=== PATIENT | male | born 1960 | race Caucasian/White ===

== ENCOUNTER 2017-11-03 18:32 | Inpatient (IN) | payer OTHER ==
[2017-11-03] MEDS ORDERED: ONDANSETRON 4 MG/2 ML VIAL IVP ONE (18:36)
[2017-11-03] MEDS ORDERED: NS 1,000 ML IV ONE ×2 (18:36→20:31)
--- NOTE | 2017-11-03 18:40 | CPEKG ---
Heart Rate: 129 RR Interval: 465 P-R Interval: 156 QRSD Interval: 80 QT Interval: 296 QTC Interval: 434 P [place]: 74 QRS [place]: 73 T Wave [place]: 247 EKG Severity - ABNORMAL ECG - EKG Impression: SINUS TACHYCARDIA EKG Impression: NONSPECIFIC T ABNORMALITIES, LATERAL LEADS Electronically Signed By: Nathan Chong 04-Nov-2017 21:52:54
--- NOTE | 2017-11-03 18:48 | EDPHY ---
HPI/HX/ROS/PE/MDM Narrative: CHIEF COMPLAINT: Abdominal pain, chest pain, dry heaves, diarrhea HPI: The patient is a 57 y/o male with a history of esophageal sphincter surgery complaining of abdominal pain, chest pain, dry heaves, and diarrhea, onset this morning. He has had chest pressure on exertion for a year and a half which was evaluated in January 2016 without etiology. This morning he began experiencing chest pain, abdominal pain, dry heaves, and diarrhea. His symptoms cycle from diarrhea to consuming liquids, such as Gatorade, to chest pain, to dry heaves, to abdominal pain and then repeat. He has had diarrhea every 15 minutes since 10:00 AM, almost 9 hours ago. He describes the abdominal pain as diffuse and dull. He has associated light sensitivity, chills, and possible fever. He denies any other associated symptoms. He had an appendectomy 40 years ago. REVIEW OF SYSTEMS: Aside from elements discussed in the HPI, a comprehensive 10-point review of systems was reviewed and is negative. PMH: Esophageal sphincter surgery, appendectomy, chronic chest pressure on exertion SOCIAL HISTORY: at bedside, , lives in [place] PHYSICAL EXAM: General:Patient is pale and diaphoretic. ENT:Eyes are normal to inspection. ENT inspection normal. Neck: Normal inspection. Full range of motion. Respiratory:Tachypnea. Breath sounds normal bilaterally. Cardiovascular: Tachycardic. Normal cap refill. Abdomen:The abdomen is nontender to palpation. There are no peritoneal signs. There are normal bowel sounds. Back: Normal to inspection. No tenderness to palpation. Skin: Normal color. No rash. Warm and dry. Extremities: Normal appearance. Full range of motion. Neuro: Oriented x3. Normal motor function. Normal sensory function. ED Course: EKG was ordered and interpreted by myself. Sinus tachycardia Please see [employer] system for official reading Study: X-ray of the chest and abdomen Indication: Abdominal pain, dry heaves, diarrhea Results: X-ray of the abdomen was obtained. The results of the study are: negative for acute processes The study was read by the radiologist, Dr. Luu. I viewed the images myself on the PACS system. Study: CT of the chest and abdomen Indication: abdominal pain, dry heaves, diarrhea Results: CT scan of the chest and abdomen was obtained. The results of the study are: negative for acute processes The study was read by the radiologist, Dr. Luu. I viewed the images myself on the PACS system. Patient was rushed into room 2 due to their diaphoretic appearance and dry heaving. I met him when he arrived. EKG was normal. Plan for X-ray and CT. 2030: I discussed admission for this patient with the hospitalist service. Dr. Ray agrees to admit. MDM: This patient presents with a variety of symptoms including numbness, chest pain , abdominal pain, vomiting and diarrhea. He remains tachycardic despite IVNS. I think he requires admission to the hospital for further hydration, observation and workup. I see no signs of CVA, ACS, PNA, bowel obstruction, aortic dissection. - Data Points Imaging Results: Imaging Impressions Abdomen X-Ray 11/03/17 18:43 Impression: No evidence for free intraperitoneal air. Chest X-Ray 11/03/17 18:44 IMPRESSION: No evidence for acute cardiopulmonary abnormality. Abdomen CT 11/03/17 19:26 Impression: 1. Subtle haziness centrally in the mesentery and a couple of subcentimeter lymph nodes suggesting subtle mesenteric inflammation. No evidence for mass or abnormal fluid collection. 2. Surgical clips at the GE junction from prior surgery. 3. Fatty infiltration of the liver. 4. Mild chronic anterior wedge compression deformity of T12 and L1. Results called and discussed with Nathan Chong MD, on 11/03/2017, 20:04. Chest/Thorax CTA 11/03/17 19:26 Impression: No evidence of thrombopulmonary embolic disease. Results called and discussed with Nathan Chong MD, on 11/03/2017, 19:56. Laboratory Results: Laboratory Results 11/03/17 18:40 11/03/17 18:40 11/03/17 11/03/17 11/03/17 18:40 18:40 18:40 WBC 15.05 10^3/uL H 10^3/uL (3.80-9.50) RBC 5.45 10^6/uL 10^6/uL (4.40-6.38) Hgb 17.4 g/dL g/dL (13.7-17.5) POC Hgb Hct 49.2 % % (40.0-51.0) POC Hct MCV 90.3 fL fL (81.5-99.8) MCH 31.9 pg pg (27.9-34.1) MCHC 35.4 g/dL g/dL (32.4-36.7) RDW 12.5 % % (11.5-15.2) Plt Count 299 10^3/uL 10^3/uL (150-400) MPV 10.6 fL fL (8.7-11.7) Neut % (Auto) 80.3 % H % (39.3-74.2) Lymph % (Auto) 14.6 % L % (15.0-45.0) [place] % (Auto) 4.4 % L % (4.5-13.0) Eos % (Auto) 0.1 % L % (0.6-7.6) Baso % (Auto) 0.3 % % (0.3-1.7) Nucleat RBC Rel Count 0.0 % % (0.0-0.2) Absolute Neuts (auto) 12.10 10^3/uL H 10^3/uL (1.70-6.50) Absolute Lymphs (auto) 2.19 10^3/uL 10^3/uL (1.00-3.00) Absolute Monos (auto) 0.66 10^3/uL 10^3/uL (0.30-0.80) Absolute Eos (auto) 0.01 10^3/uL L 10^3/uL (0.03-0.40) Absolute Basos (auto) 0.05 10^3/uL 10^3/uL (0.02-0.10) Absolute Nucleated RBC 0.00 10^3/uL 10^3/uL (0-0.01) Immature Gran % 0.3 % % (0.0-1.1) Immature Gran # 0.04 10^3/uL 10^3/uL (0.00-0.10) POC Sodium Sodium 144 mEq/L mEq/L (134-144) POC Potassium Potassium 3.9 mEq/L mEq/L (3.5-5.2) POC Chloride Chloride 107 mEq/L mEq/L (97-110) Carbon Dioxide 18 mEq/l L mEq/l (22-31) Anion Gap 19 mEq/L H mEq/L (8-16) POC BUN BUN 20 mg/dL mg/dL (7-23) Creatinine 1.2 mg/dL mg/dL (0.7-1.3) POC Creatinine Estimated GFR > 60 Glucose 128 mg/dL H mg/dL (70-100) POC Glucose Calcium 10.3 mg/dL mg/dL (8.5-10.4) Total Bilirubin 1.1 mg/dL mg/dL (0.1-1.4) Conjugated Bilirubin 0.3 mg/dL mg/dL (0.0-0.5) Unconjugated Bilirubin 0.8 mg/dL mg/dL (0.0-1.1) AST 37 IU/L IU/L (17-59) ALT 51 IU/L IU/L (21-72) Alkaline Phosphatase 87 IU/L IU/L (38-126) Troponin I < 0.012 ng/mL ng/mL (0.000-0.034) Total Protein 8.2 g/dL g/dL (6.3-8.2) Albumin 4.7 g/dL g/dL (3.5-5.0) Lipase Pending 11/03/17 18:35 WBC RBC Hgb POC Hgb 17.7 gm/dL H gm/dL (13.7-17.5) Hct POC Hct 52 % H % (40-51) MCV MCH MCHC RDW Plt Count MPV Neut % (Auto) Lymph % (Auto) [place] % (Auto) Eos % (Auto) Baso % (Auto) Nucleat RBC Rel Count Absolute Neuts (auto) Absolute Lymphs (auto) Absolute Monos (auto) Absolute Eos (auto) Absolute Basos (auto) Absolute Nucleated RBC Immature Gran % Immature Gran # POC Sodium 143 mEq/L mEq/L (134-144) Sodium POC Potassium 3.8 mEq/L mEq/L (3.3-5.0) Potassium POC Chloride 110 mEq/L mEq/L (97-110) Chloride Carbon Dioxide Anion Gap POC BUN 22 mg/dL mg/dL (7-23) BUN Creatinine POC Creatinine 1.2 mg/dL mg/dL (0.7-1.3) Estimated GFR Glucose POC Glucose 128 mg/dL H mg/dL (70-100) Calcium Total Bilirubin Conjugated Bilirubin Unconjugated Bilirubin AST ALT Alkaline Phosphatase Troponin I Total Protein Albumin Lipase Medications Given: Discontinued Medications Sodium Chloride (Ns) 1,000 mls @ 0 mls/hr IV EDNOW ONE; Wide Open PRN Reason: Protocol Stop: 11/03/17 18:37 Last Admin: 11/03/17 18:51 Dose: 1,000 mls Sodium Chloride (Ns) 1,000 mls @ 0 mls/hr IV EDNOW ONE; Wide Open PRN Reason: Protocol Stop: 11/03/17 20:32 Last Admin: 11/03/17 20:43 Dose: 1,000 mls Morphine Sulfate (Morphine) 4 mg IVP EDNOW ONE Stop: 11/03/17 18:51 Last Admin: 11/03/17 18:50 Dose: 4 mg Ondansetron HCl (Zofran) 4 mg IVP EDNOW ONE Stop: 11/03/17 18:37 Last Admin: 11/03/17 18:51 Dose: 4 mg Point of Care Test Results: 11/03/17 18:35 POC Sodium 143 POC Potassium 3.8 POC Chloride 110 POC BUN 22 POC Creatinine 1.2 POC Glucose 128 H General Time Seen by Provider: 11/03/17 18:35 Initial Vital Signs: Initial Vital Signs Temperature (C) 37 C 11/03/17 18:32 Heart Rate 146 H 11/03/17 18:32 Respiratory Rate 20 11/03/17 18:32 Blood Pressure 97/73 L 11/03/17 18:32 O2 Sat (%) 94 11/03/17 18:32 O2 Delivery Mode Room Air Allergies/Adverse Reactions: amoxicillin Allergy (Mild, Verified 11/03/17 18:39) Rash Home Medications: Medication Instructions Recorded NK [No Known Home Meds] 11/03/17 Departure - Departure Disposition: [facility] Inpatient Acute Clinical Impression: Tachycardia Chest pain Qualifiers: Chest pain type: unspecified Qualified Code(s): R07.9 - Chest pain, unspecified Abdominal pain Qualifiers: Abdominal location: generalized Qualified Code(s): R10.84 - Generalized abdominal pain Condition: Fair Report Scribed for: Nathan Chong Report Scribed by: Rachel Mendez Date of Report: 11/03/17 Time of Report: 18:48 Physician Review and Approval Statement: Portions of this note were transcribed by an ED scribe. I personally performed the history, physical exam, and medical decision making; and confirm the accuracy of the information in the transcribed note.
[2017-11-03 18:55] LABS: % IMMATURE GRANULYOCYTES 0.3 % (0.0-1.1); ABSOLUTE IMMATURE GRANULOCYTES 0.04 10^3/uL (0.00-0.10); ADD DIFF? NO; ADD MORPH? NO; ADD SCAN? NO; ATYPICAL LYMPHOCYTE FLAG 0 (0-99); FRAGMENT RBC FLAG 0 (0-99); HEMATOCRIT 49.2 % (40.0-51.0); HEMOGLOBIN 17.4 g/dL (13.7-17.5); LEFT SHIFT FLG 0 (0-99); LIPEMIA HEMOLYSIS FLAG 90 (0-99); MEAN CELL HEMOGLOBIN 31.9 pg (27.9-34.1); MEAN CELL HEMOGLOBIN CONCENTR. 35.4 g/dL (32.4-36.7); MEAN CELL VOLUME 90.3 fL (81.5-99.8); MEAN PLATELET VOLUME 10.6 fL (8.7-11.7); PLATELET CLUMPS FLAG 10 (0-99); PLATELET COUNT 299 10^3/uL (150-400); RED BLOOD CELL COUNT 5.45 10^6/uL (4.40-6.38); RED CELL DISTRIBUTION WIDTH 12.5 % (11.5-15.2)
[2017-11-03 19:07] LABS: ANION GAP 19 mEq/L (8-16); CALCIUM 10.3 mg/dL (8.5-10.4); CARBON DIOXIDE 18 mEq/l (22-31); CHLORIDE 107 mEq/L (97-110); CREATININE 1.2 mg/dL (0.7-1.3); GLOMERULAR FILTRATION RATE > 60; GLUCOSE 128 mg/dL (70-100); POTASSIUM 3.9 mEq/L (3.5-5.2); SODIUM 144 mEq/L (134-144)
[2017-11-03 19:19] LABS: TROPONIN I < 0.012 ng/mL (0.000-0.034)
[2017-11-03] MEDS ORDERED: IOPAMIDOL (ISOVUE 370) 100 ML BTL IV ONE (19:30)
[2017-11-03] MEDS ORDERED: ONDANSETRON 4 MG/2 ML VIAL IVP PRN (20:36)
[2017-11-03] MEDS ORDERED: PROMETHAZINE HCL 25 MG/ML INJ IVP PRN (20:36)
[2017-11-03] MEDS ORDERED: ONDANSETRON DISINTEGRATING 4 MG TAB PO PRN (20:36)
[2017-11-03] MEDS ORDERED: NS W/ 20 KCl/L 1,000 ML IV SCH (20:45)
[2017-11-03 20:49] LABS: ALBUMIN 4.7 g/dL (3.5-5.0); BILIRUBIN,TOTAL 1.1 mg/dL (0.1-1.4); BILIRUBIN-CONJUGATED 0.3 mg/dL (0.0-0.5); BILIRUBIN-UNCONJUGATED 0.8 mg/dL (0.0-1.1); TOTAL PROTEIN 8.2 g/dL (6.3-8.2)
--- NOTE | 2017-11-03 21:18 | PDGENHP ---
History and Physical - Chief Complaint abdominal pain, diarrhea, chest pain, dry heaves - History of Present Illness 57 yo male with no significant past medical history presents to ED appearing hypotensive and diaphoretic. His symptoms started this am, when he awoke feeling poorly. He had lower abdominal pain and developed watery diarrhea every 10 minutes, along with dry heaves, noting he is unable to vomit due to prior esophageal sphincter surgery. No BPBRP or hematemesis. He denies recent antibiotic use, recent travel ( in July), sick contacts, or suspicious food. Frequent diarrhea persisted throughout the morning. He has had little to no oral intake today. 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 He denies LOC, but felt his legs get weak and was lightheaded. He was brought to the ED and was found to be hypotensive and tachycardic, appeared pale and diaphoretic. His BP improved with NS boluses. He complained of chest pain with radiation to his left arm. Initial troponin negative. EKG with some ST depression. He is chest pain free at the time of my evaluation. He reports chronic chest pain with exertion. CT chest/abd/ pelvis revealed subtle mesenteric inflammation, no other abnormalities. He is admitted to the hospital for further evaluation. History Information - Allergies/Home Medication List Allergies/Adverse Reactions: amoxicillin Allergy (Mild, Verified 11/03/17 18:39) Rash Home Medications: NK [No Known Home Meds] 11/03/17 [Last Taken Unknown] I have personally reviewed and updated: family history, medical history, social history, surgical history - Past Medical History no pertinent PMH - Surgical History Reports: appendectomy Additional surgical history: esophageal sphinter surgery - Family History Positive for: non-pertinent - Social History Smoking Status: Never smoked Alcohol Use: None Drug Use: None Additional social history: Lives independently in [place] with his , who is present at the bedside along with his son. Review of Systems Review of Systems: ROS: 10pt was reviewed & negative except for what was stated in HPI & below Physical Exam Physical Exam: Temp Pulse Resp BP Pulse Ox 37 C 109 H 20 108/74 98 11/03/17 19:00 11/03/17 20:30 11/03/17 20:30 11/03/17 20:30 11/03/17 20:30 Constitutional: no apparent distress Eyes: PERRL Ears, Nose, Mouth, Throat: dry mucous membranes Cardiovascular: no murmur, rub, or gallop, tachycardia Respiratory: no respiratory distress, clear to auscultation Gastrointestinal: other (hyperactive bowel sounds, soft, nd, +lower abdominal TTP, no r/r/g) Skin: warm Musculoskeletal: full muscle strength Neurologic: AAOx3 Psychiatric: interacting appropriately Lab Data & Imaging Review 11/03/17 18:40 11/03/17 18:40 WBC 15.05 10^3/uL (3.80-9.50) H 11/03/17 18:40 RBC 5.45 10^6/uL (4.40-6.38) 11/03/17 18:40 Hgb 17.4 g/dL (13.7-17.5) 11/03/17 18:40 POC Hgb 17.7 gm/dL (13.7-17.5) H 11/03/17 18:35 Hct 49.2 % (40.0-51.0) 11/03/17 18:40 POC Hct 52 % (40-51) H 11/03/17 18:35 MCV 90.3 fL (81.5-99.8) 11/03/17 18:40 MCH 31.9 pg (27.9-34.1) 11/03/17 18:40 MCHC 35.4 g/dL (32.4-36.7) 11/03/17 18:40 RDW 12.5 % (11.5-15.2) 11/03/17 18:40 Plt Count 299 10^3/uL (150-400) 11/03/17 18:40 MPV 10.6 fL (8.7-11.7) 11/03/17 18:40 Neut % (Auto) 80.3 % (39.3-74.2) H 11/03/17 18:40 Lymph % (Auto) 14.6 % (15.0-45.0) L 11/03/17 18:40 [place] % (Auto) 4.4 % (4.5-13.0) L 11/03/17 18:40 Eos % (Auto) 0.1 % (0.6-7.6) L 11/03/17 18:40 Baso % (Auto) 0.3 % (0.3-1.7) 11/03/17 18:40 Nucleat RBC Rel Count 0.0 % (0.0-0.2) 11/03/17 18:40 Absolute Neuts (auto) 12.10 10^3/uL (1.70-6.50) H 11/03/17 18:40 Absolute Lymphs (auto) 2.19 10^3/uL (1.00-3.00) 11/03/17 18:40 Absolute Monos (auto) 0.66 10^3/uL (0.30-0.80) 11/03/17 18:40 Absolute Eos (auto) 0.01 10^3/uL (0.03-0.40) L 11/03/17 18:40 Absolute Basos (auto) 0.05 10^3/uL (0.02-0.10) 11/03/17 18:40 Absolute Nucleated RBC 0.00 10^3/uL (0-0.01) 11/03/17 18:40 Immature Gran % 0.3 % (0.0-1.1) 11/03/17 18:40 Immature Gran # 0.04 10^3/uL (0.00-0.10) 11/03/17 18:40 POC Sodium 143 mEq/L (134-144) 11/03/17 18:35 Sodium 144 mEq/L (134-144) 11/03/17 18:40 POC Potassium 3.8 mEq/L (3.3-5.0) 11/03/17 18:35 Potassium 3.9 mEq/L (3.5-5.2) 11/03/17 18:40 POC Chloride 110 mEq/L (97-110) 11/03/17 18:35 Chloride 107 mEq/L (97-110) 11/03/17 18:40 Carbon Dioxide 18 mEq/l (22-31) L 11/03/17 18:40 Anion Gap 19 mEq/L (8-16) H 11/03/17 18:40 POC BUN 22 mg/dL (7-23) 11/03/17 18:35 BUN 20 mg/dL (7-23) 11/03/17 18:40 Creatinine 1.2 mg/dL (0.7-1.3) 11/03/17 18:40 POC Creatinine 1.2 mg/dL (0.7-1.3) 11/03/17 18:35 Estimated GFR > 60 11/03/17 18:40 Glucose 128 mg/dL (70-100) H 11/03/17 18:40 POC Glucose 128 mg/dL (70-100) H 11/03/17 18:35 Calcium 10.3 mg/dL (8.5-10.4) 11/03/17 18:40 Total Bilirubin 1.1 mg/dL (0.1-1.4) 11/03/17 18:40 Conjugated Bilirubin 0.3 mg/dL (0.0-0.5) 11/03/17 18:40 Unconjugated Bilirubin 0.8 mg/dL (0.0-1.1) 11/03/17 18:40 AST 37 IU/L (17-59) 11/03/17 18:40 ALT 51 IU/L (21-72) 11/03/17 18:40 Alkaline Phosphatase 87 IU/L (38-126) 11/03/17 18:40 Troponin I < 0.012 ng/mL (0.000-0.034) 11/03/17 18:40 Total Protein 8.2 g/dL (6.3-8.2) 11/03/17 18:40 Albumin 4.7 g/dL (3.5-5.0) 11/03/17 18:40 Visualized and Interpreted EKG results: Yes EKG Interpretation: Positive for: ST depression Assessment & Plan Assessment: Abdominal pain with diarrhea - Suspicious for C diff with leukocytosis. Also consider viral etiology or food borne pathogens. CT abd/pelvis shows just subtle mesenteric inflammation. -send GI pathogen panel, lipase, LFT's -cont IVF hydration -anti-emetics, pain control SIRS - Tachycardia and leukocytosis. Suspect due to above along with volume depletion. Improving with IVF's -Send BCx's -IVF's Chest pain - resolved now. Initial troponin negative. EKG with mild ST depression in V5. HEART score 2, low risk. -repeat EKG now to assess for evolutionary changes -trend trop -check lipid status -if rules out, likely ok for outpt risk stratification Metabolic acidosis - ?starvation ketosis with poor oral intake -IVF's as above and recheck in am Full code DVT PPLX - low risk, SCD's for now Dispo - PCU obs
[2017-11-03] MEDS: LR 1,000 ML IV SCH (21:59)
--- NOTE | 2017-11-03 22:32 | CPEKG ---
Heart Rate: 113 RR Interval: 531 P-R Interval: 164 QRSD Interval: 84 QT Interval: 324 QTC Interval: 445 P [place]: 65 QRS [place]: 50 T Wave [place]: -16 EKG Severity - BORDERLINE ECG - EKG Impression: SINUS TACHYCARDIA EKG Impression: BORDERLINE T ABNORMALITIES, INFERIOR LEADS Electronically Signed By: Obed Walker 05-Nov-2017 06:15:50
[2017-11-04 04:09] LABS: % IMMATURE GRANULYOCYTES 0.2 % (0.0-1.1); ABSOLUTE IMMATURE GRANULOCYTES 0.02 10^3/uL (0.00-0.10); ADD DIFF? NO; ADD MORPH? NO; ADD SCAN? NO; ATYPICAL LYMPHOCYTE FLAG 0 (0-99); FRAGMENT RBC FLAG 0 (0-99); HEMATOCRIT 38.4 % (40.0-51.0); HEMOGLOBIN 13.4 g/dL (13.7-17.5); LEFT SHIFT FLG 0 (0-99); LIPEMIA HEMOLYSIS FLAG 90 (0-99); MEAN CELL HEMOGLOBIN CONCENTR. 34.9 g/dL (32.4-36.7); MEAN CELL VOLUME 91.6 fL (81.5-99.8); MEAN PLATELET VOLUME 10.8 fL (8.7-11.7); PLATELET CLUMPS FLAG 0 (0-99); PLATELET COUNT 220 10^3/uL (150-400); RED BLOOD CELL COUNT 4.19 10^6/uL (4.40-6.38)
[2017-11-04] MEDS: oxyCODONE IR 5 MG TAB PO PRN (04:38)
[2017-11-04 04:46] LABS: ANION GAP 10 mEq/L (8-16); CALCIUM 8.1 mg/dL (8.5-10.4); CARBON DIOXIDE 22 mEq/l (22-31); CHLORIDE 109 mEq/L (97-110); CREATININE 0.9 mg/dL (0.7-1.3); GLOMERULAR FILTRATION RATE > 60; GLUCOSE 111 mg/dL (70-100); POTASSIUM 3.8 mEq/L (3.5-5.2); SODIUM 141 mEq/L (134-144)
[2017-11-04 04:51] LABS: TROPONIN I < 0.012 ng/mL (0.000-0.034)
--- NOTE | 2017-11-04 09:38 | ASMTCMCOM ---
CM Note CM Note Notes: Patient admitted with abdominal pain, diarrhea, and chest pain. Labs pending and patient receiving supportive care. Will likely discharge home independent with his . No acute care therapies ordered. CM available for any discharge needs. Date Signed: 11/04/2017 09:38 AM Electronically Signed By:Angela Yusuf RN
[2017-11-04] MEDS: LR 1,000 ML IV SCH (11:03)
[2017-11-04] MEDS: ACETAMINOPHEN 325 MG TAB PO PRN (11:10)
--- NOTE | 2017-11-04 11:38 | HOSPPROG ---
Hospitalist Progress Note Assessment/Plan: 57-year-old is admitted with a fainting spell after becoming significantly dehydrated with nausea vomiting diarrhea. He has complaints of chest pain at the time and notes several months of exertional chest pain while walking up hills. # nausea vomiting diarrhea secondary to norovirus. * Supportive care * Precautions * Continue IV fluids while patient tachycardiac and hypotensive # chest pain: Patient with symptoms of fairly typical chest pain although notes a negative workup about 2 years ago at [facility]. Will check lipid panel for risk reduction and discussed with Dr. Esquivel who feels angiogram might be beneficial given his previous negative stress test. * Check lipids * Appreciate Cardiology consult * Pt needs additional midnight stay due to cp, tachycardia and hypotension # syncope: Likely secondary to norovirus will continue to hydrate Subjective: Patient new to me and chart reviewed. Feeling better with decreased diarrhea today. Still quite tachycardic and lightheaded when he gets up Objective: Vital Signs Temp Pulse Resp BP Pulse Ox 36.9 C 100 18 98/68 L 97 11/04/17 08:00 11/04/17 08:00 11/04/17 08:00 11/04/17 08:00 11/04/17 08:00 Microbiology 11/04/17 08:40 Gastrointestinal Tract Panel (PCR) - Final Stool Norovirus Gi/Gii Laboratory Results 11/04/17 03:28 11/04/17 03:28 11/03/17 11/04/17 11/05/17 05:59 05:59 05:59 Intake Total 2500 Balance 2500 - Physical Exam Constitutional: not in pain Eyes: PERRL, EOMI Ears, Nose, Mouth, Throat: moist mucous membranes, ears appear normal Cardiovascular: regular rate and rhythym, no murmur, rub, or gallop, tachycardia Respiratory: no respiratory distress, no rales or rhonchi, clear to auscultation Gastrointestinal: normoactive bowel sounds, soft, non-tender abdomen Genitourinary: no bladder fullness Skin: warm Musculoskeletal: no muscle tenderness, no joint effusions Neurologic: AAOx3 Psychiatric: interacting appropriately, not anxious ICD10 Worksheet Patient Problems: Problems Problem Status Onset Tachycardia Acute Chest pain Acute Abdominal pain Acute
--- NOTE | 2017-11-04 13:42 | GCON ---
[f rep st] CONSULTATION DATE OF CONSULTATION: 11/04/2017 CHIEF COMPLAINT: We have been asked by Dr. Duarte to evaluate the patient with a chief complaint of ch est pain and syncope. HISTORY OF PRESENT ILLNESS: The patient is a 57-year-old gentleman with limited past medical history , who was admitted to the hospital on 11/03/2017, with an episode of syncope. The patient was in his usual state of health until the day of admission, when he woke up, feeling poorly. The patient repo rted symptoms of lower abdominal pain followed by profound watery diarrhea and symptoms of nausea. H is symptoms persisted throughout the day and patient reports losing approximately 5.1 pounds througho ut the day. 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 He denies lizbet syncope. Patient denies palpita tions prior to the event. He cannot recall if he had symptoms of chest discomfort prior to the event . He was subsequently brought to the emergency department for further evaluation. In the emergency department, the patient was noted to be hypotensive and tachycardic. He was treated with intravenous fluid with improvement in his symptoms. His initial troponin was within normal medina its. His initial EKG demonstrated nonspecific ST and T-wave changes. We have been consulted to help in the further management of this patient. The patient does report approximately a 3-year history of chest pain. The chest pain is described as a pressure on his chest extending into his left arm. The chest pain is not associated with nausea, vomiting, or diaphoresis. The chest discomfort is brought on with exertion and relieved with rest. Approximately 1-2 years ago, patient did seek evaluation for his chest pain. At that time, he underw ent an echocardiogram and stress testing, which were unremarkable per report. The patient has contin ued to have ongoing symptoms of exertional chest discomfort. Patient denies smoking, hypertension, h yperlipidemia, and diabetes. There is no family history of coronary artery disease. PAST MEDICAL HISTORY: 1. Gastroesophageal reflux disease. 2. 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 MEDICATIONS: None. ALLERGIES: Amoxicillin. SOCIAL HISTORY: The patient does not smoke. He denies problems with alcohol. He lives independentl y in [place] with his . FAMILY HISTORY: Notable for pacemaker in his father. REVIEW OF SYSTEMS: A 10-point review of systems is negative, except as noted in HPI. PHYSICAL EXAMINATION: GENERAL: The patient is resting in bed. He does not appear to be in acute di stress at this time. VITAL SIGNS: Temperature afebrile, pulse is 100, blood pressure 98/68, respira tory rate is 18, SaO2 is 97% on room air. HEENT: Normocephalic, atraumatic. Extraocular muscles in tact. NECK: No JVD. No bruits. LUNGS: Clear to auscultation bilaterally. CARDIOVASCULAR: Regul ar rate and rhythm. S1, S2. No murmurs, rubs, or gallops appreciated. ABDOMEN: Soft, mildly tende r to palpation, increased bowel sounds. No hepatosplenomegaly. EXTREMITIES: No clubbing, cyanosis, or edema. NEURO: The patient is awake, alert, and oriented x3. SKIN: No evidence of rashes. LABORATORY DATA: White blood cell count is 8.71, hemoglobin is 13.4, hematocrit is 38.4, platelet co unt is 220. Sodium 141, potassium 3.8, chloride 109, CO2 22, BUN 15, creatinine 0.9. Troponin withi n normal limits x2. EKG demonstrates sinus tachycardia, normal AXIS, normal intervals, nonspecific i nferior and lateral ST changes. ASSESSMENT AND PLAN: The patient is a 57-year-old gentleman with: 1. Chest pain. The patient presents with a 2-3 year history of exertional chest pain concerning for angina. The patient underwent cardiac evaluation approximately 1-2 years ago. This was unremarkabl e, per report. The patient has continued to have exertional symptoms since this time that are concer renan for angina. Given his ongoing symptoms and the possibility of a false negative stress test, rev iewed risks and benefits of cardiac catheterization to further evaluate his condition. The patient w ishes to pursue cardiac catheterization. We will arrange to have this performed in the a.m. 2. Syncope. The patient presents with an episode of presyncope that was preceded by significant trisha rrhea and approximately a 5-pound weight loss. He was hypotensive and tachycardic on admission, cons istent with volume depletion. Suspect his episode of syncope was likely related to volume depletion. /[id number]/MODL
--- NOTE | 2017-11-04 15:29 | PDMN ---
Medical Necessity Medical necessity: Patient meets INPT criteria per physician note and [facility] [place]-[facility] Gastroenteritis (patient presents w/severe N/V,diarrhea/ > 5 # weight loss in a day; norovirus + stool; presyncopal episodes w/chest pain; anticipated LOS > 2 midnights for ongoing IV hydration for continued tachycardia/borderline hypotension and pending cardiac angiogram for exertional chest pain concerning for angina.)
[2017-11-04] MEDS ORDERED: NS W/ 20 KCl/L 1,000 ML IV SCH (19:30)
[2017-11-05 04:25] LABS: HEMOGLOBIN 12.8 g/dL (13.7-17.5); MEAN CELL HEMOGLOBIN 31.9 pg (27.9-34.1); MEAN CELL HEMOGLOBIN CONCENTR. 34.6 g/dL (32.4-36.7); MEAN CELL VOLUME 92.3 fL (81.5-99.8); RED BLOOD CELL COUNT 4.01 10^6/uL (4.40-6.38); RED CELL DISTRIBUTION WIDTH 12.9 % (11.5-15.2)
[2017-11-05 04:40] LABS: ANION GAP 9 mEq/L (8-16); CALCIUM 8.2 mg/dL (8.5-10.4); CARBON DIOXIDE 23 mEq/l (22-31); CHLORIDE 111 mEq/L (97-110); CHOLESTEROL 125 mg/dL (140-220); CHOLESTEROL/HDL RATIO 3.38 RATIO (1.00-4.97); CREATININE 0.8 mg/dL (0.7-1.3); GLOMERULAR FILTRATION RATE > 60; GLUCOSE 95 mg/dL (70-100); HIGH DENSITY LIPOPROTEIN 37 mg/dL (40-65); LDL/HDL RATIO 2.03 RATIO (1.00-3.64); LOW DENSITY LIPOPROTEIN 75 mg/dL (80-100); NON-HIGH DENSITY LIPOPROTEIN 88 mg/dL (90-129); POTASSIUM 3.9 mEq/L (3.5-5.2); SODIUM 143 mEq/L (134-144); TRIGLYCERIDE 68 mg/dL (40-150); VERY LOW DENSITY LIPOPROTEINS 13 mg/dL (8-25)
[2017-11-05] MEDS: oxyCODONE IR 5 MG TAB PO PRN (08:45)
[2017-11-05 11:33] VITALS: TEMP 98.1
[2017-11-05] MEDS ORDERED: LIDOCAINE 1% 300 MG/30 ML SDV ONE (13:12)
[2017-11-05] MEDS ORDERED: MIDAZOLAM 2 MG/2 ML VIAL ONE ×2 (13:13→14:13)
[2017-11-05] MEDS ORDERED: fentaNYL 100 MCG/2 ML INJ ONE ×2 (13:13→14:13)
[2017-11-05] MEDS ORDERED: IOPAMIDOL (ISOVUE-370) 150 ML BTL IV ONE (13:14)
--- NOTE | 2017-11-05 13:47 | PDPROPOC ---
Sedation Plan of Care Sedation Plan of Care: vital signs stable, mental status noted, patient educated of risks, benefits, alternatives, patient can tolerate sedation ASA Classification: ASA 2 Planned drugs: fentanyl, midazolam Mallampati Score: Class 2 Mallampati Reference Image: Patient passed 3-3-2 rule?: Yes
--- NOTE | 2017-11-05 13:47 | PDHPUP ---
History & Physical Update H&P update statement: This history and physical update is based on an assessment of the patient which was completed after admission or registration (within 24 hours), but prior to the surgery/procedure. H&P update: H&P reviewed & patient examined, no change in patient's condition since H&P completed
[2017-11-05 15:41] VITALS: O2SAT 96
[2017-11-05] MEDS: ACETAMINOPHEN 325 MG TAB PO PRN (15:58)
[2017-11-05 16:34] VITALS: BP 103/73; PULSE 84; RESP 13
--- NOTE | 2017-11-05 20:41 | GDS ---
[f rep st] DISCHARGE SUMMARY DIAGNOSES: 1. Nausea, vomiting, diarrhea secondary to norovirus. 2. Syncope, secondary to dehydration. 3. Chest pain, exertional, noncardiac. CONSULTATIONS: Cardiology. PROCEDURES DONE: 1. Chest and thoracic CT angiogram: Negative for PE. 2. Abdominal CT scan: Subtle haziness in the mesentery and some subcentimeter lymph nodes suggestin g subtle mesenteric inflammation. 3. Left heart catheterization: No obstructing coronary artery disease. HOSPITAL COURSE: The patient is a 57-year-old healthy man who comes in with a syncopal event. He sa ys he developed acute nausea, vomiting, and diarrhea the day of admission. He was in [facility] services and stood up to speak when he became lightheaded and fainted. During this time, he developed chest pain and was brought in to the ER for further evaluation and treatment. The above procedures were do ne. He was given IV fluids, and overnight his symptoms improved significantly where he was no longer having explosive diarrhea or any nausea and was able to eat. Because of his history of exertional c hest pain for several months, Cardiology was consulted and took him to the [facility] hearing office for an angiogram which was negative for obstructing disease. He is doing well post catheterization and will be discha rged after monitoring. CONDITION ON DISCHARGE: Good. Vital signs are stable. DISCHARGE MEDICATIONS: Please see discharge medication form. FOLLOWUP INSTRUCTIONS: He should follow up with his PCP, Dr. Shaikh, as needed for ongoing GI sympto ms. Total time spent with this patient on the day of discharge and coordination of care is 35 minutes. /[id number]/MODL
--- NOTE | 2017-11-05 20:41 | CPIP ---
[f rep st] INVASIVE CARDIAC PROCEDURE DATE OF PROCEDURE: 11/05/2017 PROCEDURE PERFORMED: 1. Coronary angiography. 2. Left ventriculography. INDICATION: 1. Syncope. 2. Class 2 to 3 angina. ACCESS: Patient was prepped and draped in a sterile fashion. 1% lidocaine was used to anesthetize t he right inguinal region. A 6-Indian introducer sheath was placed selectively into the right common femoral artery via modified Seldinger technique. CORONARY ANGIOGRAPHY: A 6-Indian JL4 was advanced to the left main coronary artery and images obtain ed. The left main coronary artery was relatively short and gave rise to a left anterior descending c oronary artery and the circumflex coronary artery. The left main coronary artery appeared normal. T he left anterior descending coronary artery gave rise to 2 diagonal branches. The left anterior desc ending coronary artery and its complement of diagonal branches appeared normal. The circumflex coron dunia artery is a large vessel. The circumflex coronary artery gave rise to 3 OM branches as well as s everal posterolateral branches. The circumflex coronary artery and its complement of branches appear ed normal. A 6-Indian no-torque right catheter was advanced to the right coronary artery and images obtained. The right coronary artery is nondominant. The right coronary artery appeared normal. LEFT VENTRICULOGRAPHY: A 6-Indian pigtail catheter was advanced in the left ventricle and images obt ained. Left ventricle is normal size and normal systolic function. Estimated ejection fraction was 65%. COMPLICATIONS: None. CONCLUSIONS: 1. Normal coronary arteries. 2. Normal left ventricular size and systolic function. /[id number]/MODL
--- NOTE | 2017-11-06 14:43 | ASDISCHSUM ---
Discharge Information Plan Status:Home with No Needs Medically Cleared to Leave:11/04/2017 Discharge Date:11/05/2017 06:16 PM CM D/C Disposition:Home, Routine, Self-Care ADT D/C Disposition:Home, Routine, Self-Care Projected Discharge Date:11/05/2017 12:00 AM Transportation at D/C:Family Discharge Delay Reason: Follow-Up Date:11/05/2017 12:00 AM Discharge Slot: Final Diagnosis: Placement Information Patient Contact Information Contact Name:DENISEROSALVA Relationship:Son Address: Work Phone: City: [facility] Phone: [facility]/Zip Code: Email: Financial Information Financial Class:HMO and PPO Plans Primary Plan Desc:H[employer] [place] [employer] Primary Plan Number:[id number] Secondary Plan Desc: Secondary Plan Number: Assessment Information [facility] CM Progress Note CM Note CM Note Notes: Patient admitted with abdominal pain, diarrhea, and chest pain. Labs pending and patient receiving supportive care. Will likely discharge home independent with his . No acute care therapies ordered. CM available for any discharge needs. Date Signed: 11/04/2017 09:38 AM Electronically Signed By:Angela Yusuf RN LACE YSABEL Length of stay for Answers: 1 day current admission Acuity / Level of Care Answers: Was the patient admitted to hospital via the emergency department? Yes: Emergency dept visits in Answers: 0 last 6 months Score: 4 Date Signed: 11/05/2017 03:22 PM Electronically Signed By:Kathe Agrawal RN Intervention Information
== END 2017-11-05 18:16 | disposition home or self-care (01) | DRG 287 ==
LOC: F2W 21:35 → OBSVTOIN 11-04 14:39
PROVIDERS: ADMIT Hospitalist; ATTEND Hospitalist
PROC: B2161ZZ Fluoroscopy of Right and Left Heart using Low Osmolar Contrast (ICD-10-PCS; principal; 2017-11-05)
PROC: 4A023N7 Measurement of Cardiac Sampling and Pressure, Left Heart, Percutaneous Approach (ICD-10-PCS; principal; 2017-11-05)
PROC: B2111ZZ Fluoroscopy of Multiple Coronary Arteries using Low Osmolar Contrast (ICD-10-PCS; principal; 2017-11-05)
DX: R07.89 Other chest pain (principal); A08.39 Other viral enteritis; E86.0 Dehydration; E87.2 Acidosis; K21.9 Gastro-esophageal reflux disease without esophagitis
CPT/HCPCS: 82947-QW; 96374; C1760; G0378; J1644; J2250; J2405; J3010; Q9967